=== PATIENT | male | born 1950 | race Caucasian/White ===

== ENCOUNTER 2017-06-25 09:20 | Emergency (ER) | payer BC, MEDICARE, OTHER ==
[2017-06-25 10:32] VITALS: BP 135/84
--- NOTE | 2017-06-25 11:22 | UC ---
Throat Pain/Nasal Kev HPI - HPI Summary HPI Summary: 5 weeks of worsening cough chest and nasal congestion - History of Current Complaint Chief Complaint: UCRespiratory Stated Complaint: FLU LIKE SYMPTOMS Time Seen by Provider: 06/25/17 11:17 Hx Obtained From: Patient Onset/Duration: Gradual Onset, Lasting Weeks - 5, Still Present Severity: Moderate Pain Intensity: 0 Cough: None Associated Signs & Symptoms: Positive: Nasal Discharge - Allergies/Home Medications Allergies/Adverse Reactions: Allergies Allergy/AdvReac Type Severity Reaction Status Date / Time No Known Allergies Allergy Verified 06/25/17 10:29 PMH/Surg Hx/FS Hx/Imm Hx Previously Healthy: No Endocrine History: Diabetes Cardiovascular History: Hypertension - Surgical History Surgical History: Yes Surgery Procedure, Year, and Place: C 3 4 5 Fusion, Bilateral TKA, Several Ortho Surgeries: shoulders, knees, screws in ankle. Umbilical Hernia repair. - Family History Known Family History: Positive: Hypertension - Social History Occupation: Retired Lives: With Family Alcohol Use: Daily Alcohol Amount: beer Substance Use Type: None Smoking Status (MU): Former Smoker When Did the Patient Quit Smoking/Using Tobacco: ~1970 - Immunization History Most Recent Influenza Vaccination: Not the 2013/2014 Season, not sure about 2014 Review of Systems Constitutional: Negative Skin: Negative Eyes: Negative ENT: Nasal Discharge, Sinus Congestion Respiratory: Cough Cardiovascular: Negative Gastrointestinal: Negative Genitourinary: Negative Motor: Negative Neurovascular: Negative Musculoskeletal: Negative Neurological: Negative Psychological: Negative Is Patient Immunocompromised?: No All Other Systems Reviewed And Are Negative: Yes Physical Exam Triage Information Reviewed: Yes Appearance: Well-Appearing, No Pain Distress, Well-Nourished Vital Signs: Initial Vital Signs Temp 98.3 F 06/25/17 10:26 Pulse 75 06/25/17 10:26 Resp 14 06/25/17 10:26 BP 135/84 06/25/17 10:26 Pulse Ox 97 06/25/17 10:26 Vital Signs Reviewed: Yes Eye Exam: Normal Eyes: Positive: Conjunctiva Clear ENT Exam: Normal ENT: Positive: Normal ENT inspection, Hearing grossly normal, Pharynx normal, Nasal congestion, TMs normal, Uvula midline. Negative: Tonsillar swelling, Tonsillar exudate, Trismus, Muffled voice, Hoarse voice, Dental tenderness, Sinus tenderness Dental Exam: Normal Neck exam: Normal Neck: Positive: Supple, Nontender Respiratory Exam: Normal Respiratory: Positive: Chest non-tender, Lungs clear, Normal breath sounds, No respiratory distress, No accessory muscle use Cardiovascular Exam: Normal Cardiovascular: Positive: RRR, No Murmur, Pulses Normal, Brisk Capillary Refill Musculoskeletal Exam: Normal Musculoskeletal: Positive: Strength Intact, ROM Intact, No Edema Neurological Exam: Normal Neurological: Positive: Alert, Muscle Tone Normal Psychological Exam: Normal Skin Exam: Normal Throat Pain/Nasal Course/Dx - Course Assessment/Plan: Zithromax, mucinex, increase fluids, follow with pcp prn - Differential Dx/Diagnosis Provider Diagnoses: Bronchitis Discharge - Discharge Plan Condition: Stable Disposition: HOME Prescriptions: Azithromycin TAB* [Zithromax TAB (Z-LUZ MARINA) 250 mg #6 tabs] 2 tab PO .TODAY, THEN 1 DAILY #1 luz marina Patient Education Materials: Acute Bronchitis (ED), Acute Cough (ED) Referrals: Jackie Bashir MD [Primary Care Provider] - If Needed
== END 2017-06-25 11:34 | disposition home or self-care (01) ==
LOC: UCCORT 09:20
DX: J40 Bronchitis, not specified as acute or chronic (principal); Z72.0 Tobacco use; Z87.891 Personal history of nicotine dependence
CPT/HCPCS: 99212; G0463